=== PATIENT | female | born 1975 | race Caucasian/White ===

== ENCOUNTER 2021-04-01 20:45 | Inpatient (IN) | payer OTHER, SELFPAY ==
[2021-03-25 13:02] VITALS: BMI 58.3
--- NOTE | 2021-03-25 13:19 | PC.NURSE ---
Report to the Outpatient Waiting Room, entrance under the green pavilion located off [facility], at time _1000 on date __04/01/2021 . OR Time: _1200 . - You and your visitor will be asked a series of questions to screen for COVID 19 for your protection. NO VISITORS IN SURGERY AREA AT THIS TIME. - A mask is required within the hospital. - Only one visitor is allowed at this time. Patient visitors will be guided where to wait when not with patient. ONE VISITOR W/MASK ALLOWED POST OP [facility]. Preoperative COVID Testing Requirements: NO TESTING NEEDED-EMAIL COPY OF COVID POSITIVE RESULT FROM 12/2020 AND PROOF OF BOOSTER No COVID Test needed if: (proof is required; if not received patient will have Rapid Test prior to entry) - Patient has received COVID Vaccine at least 14 days prior to procedure date or - Patient has positive COVID test result within last 90 days of surgery date. COVID Test needed if above criteria is not met If not COVID vaccinated a COVID test must be conducted within 72 hours of surgery and patient is asked to isolate self from time of testing until procedure. You will go to the [facility] for your COVID testing. The [facility] site is located at the corner of [address] [facility]. You will only be called if COVID results are positive and your surgeon may reschedule your elective surgery date. Patients may have clear liquids (water, carbonated beverages, clear teas, apple juice) until 3 hours prior to surgery with a maximum of 20 ounces. - No food from midnight until time of surgery - Infants may have breast milk until 4 hours before surgery, infant formula 6 hours prior to surgery. - Children will be allowed to drink immediately following surgery. If applicable, please bring a bottle or sippy cup to assist with drinking. Juice, water, soda, and popsicles are readily available. For infants on formula, please bring formula the day of surgery. Pacifiers are allowed. Take the following medications with a SIP of water the morning of surgery: _LEXAPRO Medications to discontinue per physician _VITAMINS/SUPPLEMENTS 3 DAYS PRIOR Date to take last dose___3 DAYS PRIOR Please no make-up, nail yakut, hairspray, perfume, deodorant, or body powder the day of surgery. No jewelry (including any body piercings) or valuables the day of surgery, leave them at home. Please take a shower or bath the night before, or the morning of, surgery with an antibacterial soap. Wear comfortable, loose fitting clothing. Children are encouraged to wear pajamas. - Jewelry must be removed prior to entering the operating room. Rings and piercings that are not removed may be cut off. - The hospital will not accept responsibility for valuables. - Please leave all valuables, including medications, at home the day of surgery. If you are going home after surgery, a licensed commercial front load driver must drive you home. - NO public transportation without another adult. - We recommend that an adult stay with you for 24 hours following discharge. - We also recommend that you do not drive, make important decision, drink alcoholic beverages, or take any drugs that were not prescribed by your health care provider for at least 24 hours after your discharge time. For Pediatric surgeries, we recommend two adults accompany the child home (only one inside the building at this time). Follow any additional instructions given to you from your surgeon. Telephone instructions given to __PATIENT and asked if any additional questions and then verbalized understanding. Patient advised to call surgeon office or pre surgery nurse liaison [phone] if any additional questions.
[2021-04-01] VITALS (12 sets, daily range): BP systolic 80–148; BP diastolic 44–98; PULSE 87–127; RESP 16–29; TEMP 35.8–37.3; O2SAT 94–100
--- NOTE | ~2021-04-01 | XR_ITS ---
EXAMINATION: XR shoulder RT 1V DATE: 04/02/2021 00:32 INDICATION: Right shoulder pain and numbness. TECHNIQUE: A single view of right shoulder was obtained. COMPARISON: None. FINDINGS: Bone alignment is normal. No fracture. Glenohumeral joint is normal. There is mild acromioc lavicular joint osteoarthritis. IMPRESSION: 1. Mild acromioclavicular joint osteoarthritis. Reviewed, dictated and finalized at location A. ROL ROOM AGENT
--- NOTE | ~2021-04-01 | CT_ITS ---
EXAMINATION: CTA chest PE protocol DATE: 04/02/2021 18:42 INDICATION: Shortness of breath TECHNIQUE: Computed tomography angiography (CTA) of the chest was performed with 100 mL Omnipaque-350 intravenous contrast timed to evaluate the pulmonary arteries. Coronal maximum intensity projection 3D-reconstructions were created by the technologist. Automated exposure control and iterative reconst ruction technique were employed. Exam dose: 1002.56 mGy-cm total exam DLP. COMPARISON: None. FINDINGS: There is diagnostic contrast enhancement of the pulmonary arteries. No pulmonary embolism i s evident. No thoracic aortic aneurysm or dissection. Cardiomegaly. No pericardial or pleural effusion. Scattered bilateral upper and lower lobe patchy infiltrate and/atelectasis is noted. Calcified granul garrison in the posterior left lung base, left lower lobe, consistent with old granulomatous disease. Elevated right diaphragm. Diffuse hepatic steatosis. Normal morphology of the adrenal glands. No suspicious osteolytic or osteoblastic lesions. Degenerative changes of the cervical and thoracic s pine. IMPRESSION: No evidence of pulmonary embolism Patchy bilateral pulmonary infiltrates and/atelectasis, including both upper and lower lobes Cardiomegaly Reviewed, dictated and finalized at Location A. Reviewed, dictated and finalized at location A. CULTURAL EXTENSION AGENT IMPRESSION: No evidence of pulmonary embolism Patchy bilateral pulmonary infiltrates and/atelectasis, including both upper an d lower lobes Cardiomegaly
--- NOTE | ~2021-04-01 | US_ITS ---
EXAMINATION: US renal BI DATE: 04/03/2021 10:08 INDICATION: Abnormal kidney function tests. Elevated creatinine. TECHNIQUE: Multiple ultrasound grayscale images of the kidneys were obtained. COMPARISON: Chest CT 04/02/2021 FINDINGS: The right kidney measures 10.9 x 4.0 x 5.1 cm. The left kidney measures 11.9 x 5.6 x 5.0 cm. The kidn eys demonstrate normal parenchymal echogenicity. There is no hydronephrosis. The bladder is obscured by bandages. There is diffuse hepatic steatosis. IMPRESSION: 1. Normal kidneys. No hydronephrosis. 2. Diffuse hepatic steatosis. Reviewed, dictated and finalized at location A. NCED NURSING PROFESSOR
--- NOTE | ~2021-04-01 | XR_ITS ---
XR abdomen/kub 1V DATE: 04/01/2021 20:30 INDICATION: Instrument count TECHNIQUE: 3 AP supine portable views COMPARISON: None FINDINGS: No radiopaque foreign body or instrument is identified in the [id number]. Reviewed, dictated and finalized at Location A. Reviewed, dictated and finalized at location A. ITE MAN
--- NOTE | ~2021-04-01 | US_ITS ---
EXAMINATION: US venous doppler [facility] DATE: 04/03/2021 10:08 INDICATION: Upper limb swelling. TECHNIQUE: Grayscale ultrasound images without and with compression and Doppler ultrasound images of the bilateral upper extremity veins were obtained. COMPARISON: None. FINDINGS: The visualized portions of the right internal jugular vein, subclavian vein, axillary vein, brachial veins, basilic vein, cephalic vein, radial vein, and ulnar vein are patent. The visualized portions of the left internal jugular vein, subclavian vein, axillary vein, brachial v eins, basilic vein, cephalic vein, radial vein, and ulnar vein are patent. IMPRESSION: 1. No deep venous thrombosis. Reviewed, dictated and finalized at location A. ER ATTENDANT
--- NOTE | ~2021-04-01 | XR_ITS ---
XR chest 1V 04/03/2021 10:02 Indication: Shortness of breath Procedure: AP view of the chest Comparison: CT dated 04/02/2021 Findings: There are bilateral mixed linear and airspace infiltrates of the mid and lower lungs. Shall ow inspiration. No pleural effusion. Borderline heart size. No significant pleural effusion or pneumo thorax. Impression: 1: Bilateral infiltrates of the mid and lower lungs which may represent pneumonia and/or atelectasis. Reviewed, dictated and finalized at location B. ENGER SOLICITOR Impression: 1: Bilateral infiltrates of the mid and lower lungs which may represent pneumon ia and/or atelectasis.
--- NOTE | ~2021-04-01 | XR_ITS ---
EXAMINATION: XR shoulder LT 1V DATE: 04/02/2021 00:32 INDICATION: Left shoulder pain and numbness. TECHNIQUE: A single view of left shoulder was obtained. COMPARISON: None. FINDINGS: There is internal rotation of the humerus. No fracture. Glenohumeral joint is not well prof iled. There is mild acromioclavicular joint osteoarthritis. IMPRESSION: 1. Mild acromioclavicular joint osteoarthritis. Reviewed, dictated and finalized at location A. RNED GOODS RECEIVING CLERK
[2021-04-01] MEDS: ACETAMINOPHEN 500 MG TABLET 1000 MG PO (10:26)
[2021-04-01] MEDS: LACTATED RINGERS 1,000 ML 30 ML IV CONT ×2 (10:59→20:30)
[2021-04-01] MEDS: KETOROLAC 15 MG/ML VIAL (*BKC) IV PUSH (11:00)
--- NOTE | 2021-04-01 11:41 | P.PNAN_ITS ---
Anes - Initial Pre Proc Eval Procedure: Operation Date: 04/01/21 12:00 Proposed Procedures p Laparoscopic Assisted Vaginal Hysterectomy with Bilateral Salpingectomy - Mirella Lester MD s Cystoscopy - Mirella Lester MD Date/Time: 04/01/21 11:41 Surgeon: Mirella Lester MD Pre Op Diagnosis: pelvic pain, dysmenorrhea Patient Data Age: 45 Gender: F Height: 1.63 m Weight: 163.4 kg Last Vital Signs Temp 36.3 C L 04/01/21 11:11 Pulse 87 04/01/21 11:11 Resp 16 04/01/21 11:11 BP 148/98 H 04/01/21 11:11 Pulse Ox 100 04/01/21 11:11 Allergies Allergy/AdvReac Type Severity Reaction Status Date / Time meperidine [From Demerol] AdvReac Mild NAUSEA/VOMI Verified 04/01/21 10:22 TING oxycodone [From Percocet] AdvReac Mild Itching Verified 04/01/21 10:22 Home Medications Medication Instructions Recorded Confirmed Type calcium carbonate [Caltrate 600] 600 mg PO DAILY 03/25/21 04/01/21 History escitalopram oxalate [Lexapro] 10 mg PO DAILY 03/25/21 04/01/21 History hydrochlorothiazide 25 mg PO DAILY 03/25/21 04/01/21 History omega-3 fatty acids-vitamin E 1 cap PO DAILY 03/25/21 04/01/21 History [Fish Oil] vitamin B complex 2 tablet PO DAILY 03/25/21 04/01/21 History Patient hx anesthesia problems: post op nausea/vomiting Family hx anesthesia problems: none Results Review: All pre-operative results and documents have been reviewed as part of the pre-operative evaluation. [facility] Past Medical History Medical History Hypertension Social History Social History Smoking status: Never smoker Second hand tobacco smoke exposure: Yes (Mom smokes around pt) Alcohol intake: current Drinks per week: 1 Alcohol use details: socially Substance use: never Living arrangements: with family Spiritual care concerns: No Anes - Eval Final PreProcedure Day of Procedure 04/01/21 11:41 Patient weight: super morbidly obese Heart: regular rate and rhythm Lungs: clear to auscultation Airway: Mallampati scale class II Neurological: alert and oriented Last oral intake: >/= 8 hours ASA classification: III Emergent: no Anesthetic plan: proceed Anesthesia type and monitoring: general ETT and standard monitoring Results Review: All pre-operative results and documents have been reviewed as part of the pre-operative evaluation. Informed Consent: The patient's anesthetic plan and its attendant risks and benefits were discussed with the patient/family/POA. Questions were solicited and answers provided to the satisfaction of the patient/family/POA.
--- NOTE | 2021-04-01 12:22 | WPDHPUPDATE1 ---
History and Physical Update Update Date/Time: 04/01/21 12:22 History and Physical has been reviewed, including an updated exam of the patient. There are NO changes in the patient's condition. Risks, benefits, and alternatives have been discussed and questions answered. Patient agrees to proceed with procedure.
--- NOTE | 2021-04-01 12:23 | PM.HPGS ---
History of Present Illness History of Present Illness Consent: Risks, benefits, and alternatives have been discussed and questions answered. Patient agrees to proceed with procedure. Chief complaint: pelvic pain, dysmenorrhea Narrative: Yang Barbosa is a 45 year old female s/p endometrial ablation for AUB. However, having singificant pelvic pain and periods are returining. Risk/benefits/alternatives discussed, plan is to move forward with NATE, alejandra with BS and cysto. Review of Systems Review of Systems: All systems reviewed & are unremarkable except as noted in HPI and below Constitutional: Constitutional: Reports no additional constitutional complaints Eyes: Eyes: Reports no additional eye complaints ENT: Reports system reviewed and no additional complaints, except as documented and Reports Normal hearing present Cardiovascular: Cardiovascular: Reports no additional cardiovascular complaints Respiratory: Respiratory: Reports no additional respiratory complaints Gastrointestinal: Gastrointestinal: Reports no additional gastrointestinal complaints Genitourinary: Genitourinary: Reports no additional female genitourinary complaints and Reports as per HPI Musculoskeletal: Musculoskeletal: Reports no additional musculoskeletal complaints Integumentary/Breasts: Skin/Breast: Reports system reviewed and no additional complaints, except as docu Neurologic: Reports system reviewed and no additional complaints, except as documented [facility] Past Medical History Medical History (Updated 04/01/21 @ 12:27 by Mirella Lester MD) Hypertension Post endometrial ablation syndrome Surgical History Surgical History (Updated 04/01/21 @ 12:25 by Mirella Lester MD) H/O umbilical hernia repair S/P endometrial ablation S/P trigger finger release Social History Social History Smoking status: Never smoker Second hand tobacco smoke exposure: Yes (Mom smokes around pt) Alcohol intake: current Drinks per week: 1 Alcohol use details: socially Substance use: never Living arrangements: with family Spiritual care concerns: No Meds Home Medications and Allergies Home Medications Medication Instructions Recorded Confirmed Type calcium carbonate [Caltrate 600] 600 mg PO DAILY 03/25/21 04/01/21 History escitalopram oxalate [Lexapro] 10 mg PO DAILY 03/25/21 04/01/21 History hydrochlorothiazide 25 mg PO DAILY 03/25/21 04/01/21 History omega-3 fatty acids-vitamin E 1 cap PO DAILY 03/25/21 04/01/21 History [Fish Oil] vitamin B complex 2 tablet PO DAILY 03/25/21 04/01/21 History Allergies Allergy/AdvReac Type Severity Reaction Status Date / Time meperidine [From Demerol] AdvReac Mild NAUSEA/VOMI Verified 04/01/21 10:22 TING oxycodone [From Percocet] AdvReac Mild Itching Verified 04/01/21 10:22 Vital Signs Vital Signs - 24 hr 04/01/21 11:11 Temperature 36.3 C L Pulse Rate 87 Respiratory Rate 16 Blood Pressure 148/98 H Pulse Oximetry 100 Exam Const: General: cooperative, healthy appearing and well developed HENMT: Head: normal to inspection and normocephalic Ears: hearing grossly normal bilaterally General nose exam: Normal external nose present Face and sinus: normal facial exam Mouth: Yes Normal oral and palatal mucosa present Eyes: General: appearance normal, both eyes and all related structures Neck: Neck: normal visual inspection and full ROM Chest: Chest palpation & inspection: normal inspection of the chest and normal palpation of entire chest wall Resp: Effort & Inspection: normal respiratory effort and able to speak in complete sentences GI: GI Palp: No abdominal tenderness, No Abdominal aortic bruit present, No Soft to palpation, No Firmness to palpation present (GI), No Tenderness to palpation present (GI), No Guarding due to palpation present (GI), No Rigid due to palpation, No No hepatosplen
[2021-04-01] MEDS: ceFAZolin 3 GM/D5W 100 ML 100 ML IVPB (12:33)
[2021-04-01] MEDS: BUPIVACAINE/EPINEPHRINE 0.25% 10 ML VIAL 9 ML INFILTRATE (13:09)
--- NOTE | 2021-04-01 14:47 | SUR.OPER ---
PATIENT MAINTAINS POSITIONING AND UNCHANGED
[2021-04-01] MEDS: ceFAZolin SODIUM 1 GM VIAL 3 GM IV PUSH (16:33)
--- NOTE | 2021-04-01 17:35 | SUR.OPER ---
Dr Fuentes notified for assistance as per Dr Lester [id number]
--- NOTE | 2021-04-01 17:44 | SUR.OPER ---
positioning checked and maintained
--- NOTE | 2021-04-01 17:48 | SUR.OPER ---
urine remains clear yellow in vieira tubing and bag.
--- NOTE | 2021-04-01 20:40 | SUR.OPER ---
EBL 2500
[2021-04-01] MEDS: hydrOXYzine HCl 50 MG/ML VIAL 25 MG IM (21:05)
[2021-04-01] MEDS: fentaNYL CITRATE INJ (*CRX) 100 MCG/2 ML VIAL 25 MCG IV PUSH ×4 (21:27→21:43)
--- NOTE | 2021-04-01 21:55 | W.PM.PROC2 ---
Procedure Note - Detailed Date of Procedure 04/01/21 Pre-op Diagnosis pelvic pain, dysmenorrhea Post-op Diagnosis other (Pelvic pain, Dysmenorrhea, acute blood loss) Procedure Performed Vaginal hysterectomy, Diagnostic laparoscopy with Exploratory laparotomy Surgeon Mirella Lester MD Agency Legal Counsel Aguilar Fuentes MD Anesthesia general Indications Has had an endometrial ablation. However, pain worsened after surgery and decided to move forward with hysterectomy. Findings Normal appearing uterus, ovaries and tubes, however, vaginal vault long and narrow and difficult to visualize the pedicles due to size of patient and since there was bleeding higher up, laparoscopy performed. However unable to reach deep pelvic vessel inferior to cuff with laparoscopic instruments. Attempted to reopen cuff to reach but still unalbe given depth of pelvis. Dr Fuentes called into the assist and he agreed was difficult to reach and we decided to open with Pfannenstiel to reach the deep pelvic area that was still oozing/bleeding. Suture, compression and Surgicel powder needed to obtain hemostasis Description of Procedure The patient was taken to the operating room where general anesthesia was found to be adequate. She was then prepared and draped in the dorsal lithomy position in [facility]. A vieira catheter was placed. A speculum was used to visualize the cervix and single toothed tenaculum placed on the anterior lip. A second tenaculum was placed on the posterior lip. 0.5% marcaine with epinephrine used to inject the cervical mucosa. Then Bovie used to create a circumferential incision at the level of the cervical vaginal junction. Metzembaum scissors used to dissect the bladder back anteriorly off the cervix and enter into the peritoneum. The peritoneum entry was stretched laterally. The bladder retractor placed through the incision. The uterus was elevated upwards and the posterior colpotomy incision made with scissors. The incision was also stretched laterally . The posterior retractor was just not long enough to placed within the incision so it kept slipping out. A suture was placed on the posterior cuff to tag it. The curved heany clamps were placed to get the uterosacral ligaments on the left first, and suture ligate with o-vicryl suture, then on the right in a similar fashion. THe 5mm ligasure was then used to cauterize down the cardinal ligaments with good hemostasis bilaterally. Once adequate mobility noted, the VPATH retractor was inserted in the usual fashion. It was placed within the posterior vault first, then the anterior incision. However, once attaching the gel port, pneumoperitoneum could not be maintained due to patients large status despite trendelenberg. Also visibility in the vagina was very difficult due to redundant vaginal tissue, so the VNOTEs procedure aborted and retractor removed. I then proceeded with the 5mm LIgasure though as we worked our way up the cervix, visiblity continued to be difficult. A third academic assistant was called in to help retract and I decided to stitch back the labia majora to help with visiblity. The ligasure was then used through the uteroovarian ligaments on the left first then right with good hemostasis, then through the broad ligament and over the round ligaments bilaterally, left then right. Then through over the cornua through the tubal tissue and amputated the uterus/cervix and pulled through the vaginal cuff. Once removed, there was noted to be bleeding on the posterior aspect of the cuff. So the cuff was oversewed with o-vicryl suture in a running fashion. Then a portion of the peritoneum was also oversewed. However there was noted to be bleeding from the center of the cuff higher up but visualization was very difficult given habitus despite extra retraction. So the cuff was then closed with figure of 8 sutures and I decided to look laparoscopic. So an infraumbilical incision was made with a scalpel after inje
--- NOTE | 2021-04-01 22:06 | PC.NURSE ---
Patient transferred to post room #281. Oriented to unit, room, information board, and call light in place. Pt is ax0 x4 and experiencing significant amount of pain. Patient verbalizes understanding.
[2021-04-01] MEDS: MORPHINE SULFATE PCA (*CRX) 30 MG/30 ML SYR IV CONT (22:25)
[2021-04-01] MEDS: MORPHINE SULFATE (*CRX) 4 MG/ML INJ 5 MG IV PUSH (22:30)
[2021-04-01 23:24] LABS: Hematocrit 35.3 % (37.0-47.0); Hemoglobin 11.5 g/dL (12.0-15.0); Mean Corpuscular HGB Conc 32.6 g/dl (32-36); Mean Corpuscular Hemoglobin 31.3 pg (26-34); Mean Corpuscular Volume 96.2 fl (80-100); Mean Platelet Volume 10.1 fl (7.4-10.4); Platelet Count Result 240 k/mm3 (150-375); Red Blood Count 3.67 M/mm3 (4.2-5.4); Red Cell Distribution Width 12.8 % (11.5-14.5); White Blood Count 30.1 K/mm3 (4.5-10.0)
[2021-04-01] MEDS: SODIUM CHLORIDE 0.9% IV 1,000 ML 175 ML IV CONT (23:40)
[2021-04-01] MEDS: SODIUM CHLORIDE 0.9% IV 500 ML IV CONT (23:40)
[2021-04-02] VITALS (16 sets, daily range): BP systolic 100–122; BP diastolic 60–88; PULSE 104–139; RESP 14–30; TEMP 36.1–36.9; O2SAT 77–98
--- NOTE | 2021-04-02 00:24 | PM.GYNPNOP ---
DESIGN CHECKER - A/P Assessment and plan (1) Shoulder pain, bilateral: Code(s): M25.511 - Pain in right shoulder; M25.512 - Pain in left shoulder Status: Acute Assessment and Plan: Discussed case with Dr Coelho the Hospitalist. With H/H stable, will start toradol to see if helps. continue Ice/heat. May consider steroid tomorrow if NSAIDs not helpful (2) Acute blood loss as cause of postoperative anemia: Code(s): D62 - Acute posthemorrhagic anemia Status: Acute Assessment and Plan: stable. H/H good. Continue to follow closely. Repeat in 5 hrs Postoperative Procedures: Procedures Operation Date: 04/01/21 12:00 Actual Procedure Side Surgeon p Vaginal Hysterectomy Diagnostic Laparoscopy,Exploratory Laparotomy Not Applicable Mirella Lester MD Time Spent With Patient Time: Total time spent is 60min and greater than 50% in coordination of care (as documented) at patient's floor/unit and/or counseling Time with patient: Greater than 35 minutes DESIGN CHECKER- PN:Subj Post-Op Subjective Date/time seen: 04/02/21 00:24 Alison is complaining of shoulder pain. Post operative H/H stable. The pain is shooting/throbbing pains and cause pins and needles in hands since surgery. She can move her fingers on both hands now, but could not do that immediately post op. Elevation of the arms helps. No pelvic pain. no abdominal pain. no n/v. no fever. has a history of right shoulder bursitis. But both shoulders are causing her a problem today. Exam Narrative: Laying supine with slight leftward tilt. I can elevate both arms which give her some pain initially, but then some relief once up and moving. She can move her fingers more easily with the elevated arms. Patient has DYNAMITE CARTRIDGE CRIMPER and is using the pain button when able. Shoulder XRAY appears normal bilaterally DESIGN CHECKER - PN: Obj Data Vital Signs Vital Signs: Vital Signs - 24 hr 04/01/21 11:11 04/01/21 20:30 04/01/21 20:45 Temperature 36.3 C L 37.3 C 37.3 C Pulse Rate 87 127 H 127 H Respiratory Rate 16 25 H 25 H Blood Pressure 148/98 H 81/57 L 81/57 L Pulse Oximetry 100 98 98 04/01/21 21:00 04/01/21 21:15 04/01/21 21:30 Temperature Pulse Rate 119 H 118 H 117 H Respiratory Rate 28 H 26 H 23 H Blood Pressure 85/54 L 92/55 L 93/56 L Pulse Oximetry 97 97 97 04/01/21 21:45 04/01/21 22:25 Temperature Pulse Rate 122 H Respiratory Rate 29 H 20 Blood Pressure 94/62 L Pulse Oximetry 96 Intake/Output Intake/Output: Intake & Output 03/30/21 03/31/21 04/01/21 04/02/21 23:59 23:59 23:59 23:59 Intake Total 5300 Output Total 230 Balance 5070 Meds/Results Medications: Active Medications Generic Name Dose Route Start Last Admin Trade Name Freq PRN Reason Stop Dose Admin Enoxaparin Sodium 40 mg 04/02/21 06:00 Enoxaparin 40 Mg/0.4 Ml Syringe SUB-Q Q24H [facility] Escitalopram Oxalate 10 mg 04/02/21 09:00 Escitalopram Oxalate 10 Mg Tablet PO DAILY [facility] Fentanyl Citrate 25 mcg 04/01/21 11:43 04/01/21 21:43 Fentanyl Citrate Inj (*Crx) 100 Mcg/2 Ml Vial IV PUSH 25 mcg Q2M PRN Administration Pain Gabapentin 300 mg 04/02/21 00:25 Gabapentin 300 Mg Capsule PO TID [facility] Hydrochlorothiazide 25 mg 04/02/21 09:00 Hydrochlorothiazide 25 Mg Tablet PO DAILY [facility] Hydroxyzine HCl 25 mg 04/01/21 20:45 04/01/21 21:05 Hydroxyzine Hcl 50 Mg/Ml Vial IM 25 mg ONCE PRN Administration Itching Hydroxyzine HCl 25 mg 04/01/21 21:04 Hydroxyzine Hcl 50 Mg/Ml Vial IM Q4H PRN Moderate Pain (4-6) Morphine Sulfate 30 mg in 30 mls @ 0 mls/hr 04/01/21 21:00 04/01/21 22:25 Morphine Sulfate Pallet Stone Positioner IV CONT 0.5 mg/hr .Q0M PRN 0.5 mls/hr DYNAMITE CARTRIDGE CRIMPER Management Administration Protocol Per Protocol Sodium Chloride 500 mls @ 500 mls/hr 04/01/21 23:41 Normal Saline Iv IV CONT 04/02/21 00:40 .Q1H ONE Sodium Chloride 1,000 mls @ 175 mls/hr 04/02/21 00:10
[2021-04-02] MEDS: KETOROLAC 30 MG/ML VIAL (*BKC) (01:00)
[2021-04-02] MEDS: GABAPENTIN 300 MG CAPSULE PO ×3 (03:25→13:16)
[2021-04-02] MEDS: SODIUM CHLORIDE 0.9% IV 1,000 ML 175 ML IV CONT (05:04)
[2021-04-02 05:18] LABS: Basophils Percent Auto 0.1 % (0.2-1.2); Hematocrit 30.5 % (37.0-47.0); Hemoglobin 10.3 g/dL (12.0-15.0); Immature Granulocyte Absolute 0.24 K/mm3 (0.00-0.031); Immature Granulocyte Percent A 0.8 % (0-0.5); Lymphocytes Absolute Auto 2.15 K/mm3 (0.9-3.2); Lymphocytes Percent Auto 7.6 % (18.3-44.2); Mean Corpuscular HGB Conc 33.8 g/dl (32-36); Mean Corpuscular Volume 91.9 fl (80-100); Mean Platelet Volume 10.3 fl (7.4-10.4); Monocytes Absolute Auto 2.5 K/mm3 (0.1-0.6); Monocytes Percent Auto 8.7 % (2.6-8.5); Neutrophils Absolute Auto 23.5 K/mm3 (1.3-6.7); Neutrophils Percent Auto 82.8 % (45.5-73.1); Platelet Count Result 231 k/mm3 (150-375); Red Blood Count 3.32 M/mm3 (4.2-5.4); Red Cell Distribution Width 12.8 % (11.5-14.5); White Blood Count 28.4 K/mm3 (4.5-10.0)
[2021-04-02 05:27] LABS: Anion Gap 6 mmol/L (8-16); Blood Urea Nitrogen 23 mg/dL (7-17); Calcium 7.9 mg/dL (8.4-10.2); Carbon Dioxide 22 mmol/L (22-30); Chloride 104 mmol/L (98-107); Estimated CRCL calculation 76 ml/min; Estimated Glomerular Filt Rate 44; Glucose 154 mg/dL (65-110); Potassium 4.6 mmol/L (3.4-5.0); Sodium 132 mmol/L (137-145)
[2021-04-02] MEDS: ENOXAPARIN 40 MG/0.4 ML SYRINGE SUB-Q (05:32)
[2021-04-02] MEDS: MORPHINE SULFATE PCA (*CRX) 30 MG/30 ML SYR IV CONT (05:33)
--- NOTE | 2021-04-02 06:30 | PC.NURSE ---
04/01/21 at 2206-Pt arrived to 281 via bed from recovery with primary c/o pain 9:10- 10:10 to bilateral arms, shoulders, hands, and fingers. Pt describes the pain as a numb and tingling . Pt was unable to move fingers on her left hand initially and is able to do so by the end of this shift independently. Pt was also unable to lift bilateral arms off pillows that were placed under her arms upon admission to aide in comfort and reduction of swelling. By the end of this shift, pt's swelling appears to be improving and movement is improving also. Pt is now able to partially raise her right and left arms off the pillows to about a 45 degree angle. Right arm functioning better than left. Pt continues to c/o pain to bilateral shoulders as well stating she cannot move them off the bed also. PT states she has issues with her right shoulder and has had steroid injections in it, but the left side is bothering her more than her right. Pt states she can feel you touching her at all these areas. 04/01/21 at 2315-Dr. Lester was notified of pt's low bp, urine output, and inability to move bilateral arms, shoulders and hands. Updated on pt's status and concerns. 04/01/21 at 2335: Dr. Lester and nursing tunnel form placing supervisor, Alva Silva, at bedside to assess pt. Orders received for 500ml iv NS bolus x1, bilateral shoulder xrays and Dr. Lester consulted with Dr. William. Pt started on ivp toradol and gabapentin po after results of cbc obtained. Pt intermittently was able to rest with use of morphine APPLICATION PACKAGING CONSULTANT. This morning Dr. Lester again came to pt's bedside approx 0615 to reassess. Notified of marginal to low urine output that is dark tea colored (200ml in 5.5 hours). Orders received for ivp lasix x1, PT/OT eval, and decrease NS at kvo while morphine APPLICATION PACKAGING CONSULTANT infusion continues. Report given to LESLEY Glasgow to resume care.
[2021-04-02] MEDS: FUROSEMIDE INJ 40 MG/4 ML VIAL 20 MG IV PUSH (07:11)
[2021-04-02] MEDS: KETOROLAC 30 MG/ML VIAL (*BKC) IV PUSH ×2 (09:08→17:53)
[2021-04-02] MEDS: hydroCHLOROthiazide 25 MG TABLET PO (09:09)
[2021-04-02] MEDS: ESCITALOPRAM OXALATE 10 MG TABLET PO (09:10)
--- NOTE | 2021-04-02 09:40 | WPDANESPN ---
Anes - Prog Note Post-Op Date/Time: 04/02/21 09:40 Cardiovascular status: normal and other (patient complaining of left arm weakness will follow up) Respiratory status: normal Airway patency: baseline Mental status: baseline Post-Op hydration status: normal Vital Signs: Last Vital Signs Temp 36.7 C 04/02/21 07:50 Pulse 114 H 04/02/21 07:50 Resp 18 04/02/21 07:50 BP 114/62 04/02/21 07:50 Pulse Ox 94 04/02/21 07:50 Pain Score (VAS): 0 I/O: Intake & Output 04/01/21 04/02/21 04/02/21 23:59 07:59 15:59 Intake Total 5200 2170 Output Total 230 250 150 Balance 4970 1920 -150 Laboratory Tests 04/02/21 05:03 04/02/21 05:03 04/01/21 04/02/21 04/02/21 23:19 05:03 05:03 WBC 30.1 H 28.4 H RBC 3.67 L 3.32 L Hgb 11.5 L 10.3 L Hct 35.3 L 30.5 L MCV 96.2 91.9 MCH 31.3 31.0 MCHC 32.6 33.8 RDW 12.8 12.8 Plt Count 240 231 MPV 10.1 10.3 Immature Gran % (Auto) 0.8 H Neut % (Auto) 82.8 H Lymph % (Auto) 7.6 L [place] % (Auto) 8.7 H Eos % (Auto) 0.0 Baso % (Auto) 0.1 L Lymph # (Auto) 2.15 [place] # (Auto) 2.5 H Eos # (Auto) 0.0 Baso # (Auto) 0.0 Abs Immat Gran (auto) 0.24 H Absolute Neuts (auto) 23.5 H Absolute Nucleated RBC 0.0 Nucleated RBC % 0.0 Sodium 132 L Potassium 4.6 Chloride 104 Carbon Dioxide 22 Anion Gap 6 L BUN 23 H Creatinine 1.30 H Estim Creat Clear Calc 76 Estimated GFR 44 L Glucose 154 H Calcium 7.9 L Post-procedural complaints: none Patient Feedback: Patient satisfied with anesthetic care.
[2021-04-02] MEDS: ONDANSETRON INJ 4 MG/2 ML VIAL IV PUSH (11:29)
--- NOTE | 2021-04-02 15:01 | PC.NURSE ---
1453 Called PT to see if they received the order and if so when will they be coming to see pt? They determined that the pt should be seen by OT and they will not be in till tomorrow 04/03 in the AM.
[2021-04-02] MEDS: NALOXONE HCL 0.4 MG/ML VIAL (17:17)
--- NOTE | 2021-04-02 18:10 | PM.GYNPNOP ---
PULP GRINDER - A/P Postoperative Procedures: Procedures Operation Date: 04/01/21 12:00 Actual Procedure Side Surgeon p Vaginal Hysterectomy Diagnostic Laparoscopy,Exploratory Laparotomy Not Applicable Mirella Lester MD Time Spent With Patient Time: Total time spent is greater than 50% in coordination of care (as documented) at patient's floor/unit and/or counseling patient: Explained to her and her spouse the issues going on. Ordered spiral CT to rule out PE given prolonged immobility. Instructed RN to keep SCDs on if unable to get up and move around today. Was able to sit up earlier when nauseated and vomited, does not complain of pain in her abdomen. I believe she may need evaluated for sleep apnea. May need third dose of narcan. Labs pending from most recent draw. Fluids were restricted today to KVO for nutrition assistant only. However output did improve earlier today with low dose of lasix. Will get IM input as far as how to best manage the low sodium and low volume status based on the most recent labs once returned. May need to change toradol if Creatinine has worsened though it is doing well to improve shoulder mobility and pain control. DC optical engineering manager at this time. Time with patient: Greater than 35 minutes PULP GRINDER- PN:Subj Post-Op Subjective Date/time seen: 04/02/21 18:10 Called by RN concerning change in patients status. She reports that she was difficult to arouse from sleep and she would open her eyes but wasnt fully waking up. Her O2 sat was down in 70s and her pulse was elevated. She had concerns about needing to call a rapid response. I gave instruction to give NARCAN and stop nutrition assistant and that I would be there in 20 min, but to have the IM hospitalist evaluatae her in the mean time. She gave her NARCAN and repeated it 2 min later and the hospitalist was then phoned. She recieved orders for some labs and blood cultures. The patient had waken up and was able to conversate with the RN at that point so no rapid response was called. When I arrived, she was drawing the blood for the labs and the patient was awake, but still drowsy and nodding off to sleep. Easily arousable with minor stimulation and able to converse. She has no abdominal pain. She reports her shoulder pain is still a 6/10. Denies chest pain. says she generally does sleep heavily and will sometimes carry on conversation in her sleep and not know she did so. Her oxygen currently is maintained 94-98% with 4L o2. Exam Narrative: Smiles when aroused, but nods off to sleep if left alone Const: General: cooperative Orientation/consciousness: oriented to person, oriented to place and oriented to time Chest: Chest palpation & inspection: normal inspection of the chest and normal palpation of entire chest wall Resp: Effort & Inspection: able to speak in complete sentences, uses accessory muscles and symmetric chest movement Auscultation: clear to auscultation bilaterally, no crackles, no rales, no rhonchi and no wheezes Cardio: Rate: tachycardic Rhythm: regular rhythm Heart sounds: S1 normal heart sound present, S2 normal heart sound present and no murmurs GI: Inspection: normal to inspection, non-distended and incision (c/d/i) GI Palp: No abdominal tenderness Urinary Catheter: Urinary Catheter: urine clear Skin: General skin exam: normal color (but clammy feeling) Extrem: Other: all extremeties edematous, non pitting. Able to move arms up on her own however, not all the way up, but not wincing as much as yesterday. Able to move fingers and grasp, which was restricted yesterday evening with slight improvement this morning. PULP GRINDER - PN: Obj Data Vital Signs Vital Signs: Vital Signs - 24 hr 04/01/21 20:30 04/01/21 20:45 04/01/21 21:00 Temperature 37.3 C 37.3 C Pulse Rate 127 H 127 H 119 H Respiratory Rate 25 H 25 H 28 H Blood Pressure 81/57 L 81/57 L 85/54 L Pulse Oximetry 98 98 97 04/01/21 21:15 04/01/21 21:30 04/01/21 21:45 Temperature Pulse Rate 118 H 117 H 122 H Resp
--- NOTE | 2021-04-02 19:16 | ECG_ITS ---
Measurements Intervals [place] Rate: 115 P: 48 [place]: 145 QRS: 53 QRSD: 102 T: 28 QT: 308 QTc: 426 Interpretive Statements SINUS TACHYCARDIA DELAYED PRECORDIAL R/S TRANSITION MINIMAL Q WAVES- INFERIOR LEADS NONSPECIFIC T-WAVE ABNORMALITY- INFERIOR LEADS BASELINE ARTIFACT- I, II, III, AVR ABNORMAL ECG Electronically Signed On 04-02-2021 20:44:50 ARCADE GAME TECHNICIAN by Alex Keith D.O.
[2021-04-02 19:48] LABS: Basophils Absolute Auto 0.1 K/mm3 (0.0-0.1); Basophils Percent Auto 0.2 % (0.2-1.2); Hematocrit 27.1 % (37.0-47.0); Hemoglobin 8.7 g/dL (12.0-15.0); Immature Granulocyte Absolute 0.32 K/mm3 (0.00-0.031); Immature Granulocyte Percent A 1.1 % (0-0.5); Lymphocytes Absolute Auto 2.54 K/mm3 (0.9-3.2); Lymphocytes Percent Auto 8.5 % (18.3-44.2); Mean Corpuscular HGB Conc 32.1 g/dl (32-36); Mean Corpuscular Volume 96.4 fl (80-100); Mean Platelet Volume 10.1 fl (7.4-10.4); Monocytes Percent Auto 9.9 % (2.6-8.5); Neutrophils Absolute Auto 24.1 K/mm3 (1.3-6.7); Neutrophils Percent Auto 80.3 % (45.5-73.1); Platelet Count Result 210 k/mm3 (150-375); Red Blood Count 2.81 M/mm3 (4.2-5.4); Red Cell Distribution Width 12.8 % (11.5-14.5)
[2021-04-02 20:52] LABS: Alanine Aminotransferase 233 U/L (4-35); Albumin Level 3.2 g/dL (3.5-5.1); Alkaline Phosphatase 41 U/L (38-126); Anion Gap 6 mmol/L (8-16); Bilirubin,Total 0.3 mg/dL (0.2-1.3); Blood Urea Nitrogen 35 mg/dL (7-17); Calcium 7.4 mg/dL (8.4-10.2); Carbon Dioxide 22 mmol/L (22-30); Chloride 102 mmol/L (98-107); Estimated CRCL calculation 46 ml/min; Estimated Glomerular Filt Rate 24; Glucose 142 mg/dL (65-110); Potassium 5.6 mmol/L (3.4-5.0); Sodium 130 mmol/L (137-145)
[2021-04-02 21:10] LABS: Aspartate Amino Transferase 795 U/L (14-36)
--- NOTE | 2021-04-02 21:38 | PC.NURSE ---
[address] Lester per phone to report change in pt condition. @ 1655 Pt sleeping and could not arouse, HR 122, BP 122/67, PO2 77, Resp 20, applied 10 L O2 per Nonrebreather mask and stopped Morphine VIDEO CAMERA OPERATOR @ 1700 PO2 95. Urine output 45cc. Give Narcan, Stat H&H and Call Hospitalist to come evaluate pt. She stated she will be here in 20 minutes. 1711 Called Hospitalist and left a VM. 1712 Called Receiving And Processing Supervisor and stated that the Hospitalist did not answer. Receiving And Processing Supervisor gave this ext. to call [phone] and stated if you do not get ahold of them call me back. Called that number and did not get an answer. 1714 called HS back and got no answer. 1718 Gave .25 ml Narcan, no response, 1720 Gave .25 ml Narcan Pt woke up. She was responsive when questions ask of her. soon after this Dr. Lester here.
--- NOTE | 2021-04-02 21:39 | PC.NURSE ---
1453 Called PT to see when they are coming to evaluate pt? They Decided that OT needed to come see pt. OT will not be here until tomorrow 04/03/2021 in the AM. Please change the order to OT.
--- NOTE | 2021-04-02 21:40 | PC.NURSE ---
1815 Pt transported per bed to CT Scan. 1835 Returned to room 281 per bed.
--- NOTE | 2021-04-02 22:30 | PM.IMCN ---
Assessment and Plan Assessment and plan (1) Acute renal failure: Code(s): N17.9 - Acute kidney failure, unspecified Status: Acute (2) Transaminitis: Code(s): R74.01 - Elevation of levels of liver transaminase levels Status: Acute (3) Postoperative hypotension: Code(s): I95.81 - Postprocedural hypotension Status: Acute (4) Morphine overdose: Code(s): T40.2X1A - Poisoning by other opioids, accidental (unintentional), initial encounter Status: Acute (5) Acute blood loss anemia: Code(s): D62 - Acute posthemorrhagic anemia Status: Acute (6) Tachycardia: Code(s): R00.0 - Tachycardia, unspecified Status: Acute (7) Respiratory failure with hypoxia: Code(s): J96.91 - Respiratory failure, unspecified with hypoxia Status: Acute (8) Pneumonia: Code(s): J18.9 - Pneumonia, unspecified organism Status: Acute Additional Plan This is 45-year-old female status post hysterectomy for pelvic pain complicated postoperatively with hypotension, renal failure and hypoxia # acute renal failure with decreased urine output. 24 hour urine low. Will continue IV fluid. Taylor catheter in place. Likely due to postoperative blood loss and hypotension renal will be consulted mildly hyperkalemic will give a dose of Kayexalate. Recheck and monitor she. CK level is ordered which is pending at this time. # postoperative hypotension improved with IV hydration she received 6 L of fluids during the surgery. She had 2500 cc of blood loss during the surgery. She has postoperative anemia which # postoperative acute blood loss hemoglobin down to 8.7 with mild tachycardia and borderline blood pressure will transfuse 1 unit of PRBC and continue to monitor her H&H. Lovenox will be on hold for the morning if H&H improves adequately will resume DVT prophylaxis dose # bilateral upper extremity pain and edema due to prolonged surgery will rule out DVT will get ultrasound venous duplex elevate the arm as already ordered. This could be from her prolonged surgery and neurological compromise however noted to be improving since the surgery. # hypoxic respiratory failure noted this evening likely due to morphine overdose she was on LOTUS NOTES DEVELOPER which has been stopped. CT is negative for PE but does have bilateral infiltrates could relate to pneumonia with her leukocytosis of 30,000 will start her on empiric antibiotics with vancomycin cefepime # elevated liver enzymes likely due to shock liver avoid any hepatotoxic agents. Recheck and monitor. # DVT prophylaxis Lovenox will lower the dose to 30 mg due to renal function however will hold until we ensure no further blood loss # history of hypertension # hyponatremia worsened since surgery this could be related to hypovolemia versus SIADH post surgery. Normal saline at 100 cc an hour. Continue to monitor sodium level # hyper kalemia will give a dose of Kayexalate today and recheck in the morning # code status full code Thank you for the consultation. Discussed with matrix supervisor/admitting service. HPI Data of Consult Consult date: 04/02/21 Requesting Physician: Mirella Lester MD Primary Care Provider: PHYSICIAN NOT ON STAFF Consult Narrative Narrative: Yang Barbosa is a 45 year old female who presented to the hospital for elective vaginal hysterectomy on 04/01/2021. This was being done for pelvic pain worsened post endometrial ablation. The attempted laparoscopic surgery needed to be opened up and was complicated with 2500 cc blood loss along with prolonged surgery for several hours. Postoperatively she had bilateral upper extremity pain and tingling numbness. She has been placed on a morphine LOTUS NOTES DEVELOPER postoperative. See had used quite a bit of morphine and was noted to be unresponsive in the evening for which Narcan x2 was given after which she started to wake up. She was noted to be hypoxic in 70s and was placed on non-rebreathe
[2021-04-02 22:35] LABS: Creatine Kinase > 16000 U/L (30-135)
[2021-04-02 23:54] LABS: Lactic Acid Reflex 1.1 mmol/L (0.7-2.1)
[2021-04-03] VITALS (10 sets, daily range): BP systolic 103–126; BP diastolic 59–73; PULSE 102–109; RESP 14–20; TEMP 36.4–37.7; O2SAT 96–100
[2021-04-03] MEDS: ACETAMINOPHEN 325 MG TABLET PO ×2 (00:18→07:59)
[2021-04-03] MEDS: SODIUM CHLORIDE 0.9% IV 250 ML 30 ML IV CONT (02:33)
[2021-04-03] MEDS: TUBING, BLOOD PLUM PUMP TUBING 1 EACH XX (02:33)
[2021-04-03] MEDS: MORPHINE SULFATE (*CRX) 2 MG/ML INJ IV PUSH (06:06)
[2021-04-03] MEDS: SODIUM CHLORIDE 0.9% IV 1,000 ML 100 ML IV CONT (06:34)
[2021-04-03] MEDS: LIDOCAINE 5% PATCH 1 PATCH TRANSDERM (08:02)
--- NOTE | 2021-04-03 09:32 | PM.IMPN ---
Progress Note: A&P Assessment and Plan (1) Acute renal failure: Code(s): N17.9 - Acute kidney failure, unspecified Status: Acute (2) Transaminitis: Code(s): R74.01 - Elevation of levels of liver transaminase levels Status: Acute (3) Postoperative hypotension: Code(s): I95.81 - Postprocedural hypotension Status: Acute (4) Morphine overdose: Code(s): T40.2X1A - Poisoning by other opioids, accidental (unintentional), initial encounter Status: Acute (5) Acute blood loss anemia: Code(s): D62 - Acute posthemorrhagic anemia Status: Acute (6) Tachycardia: Code(s): R00.0 - Tachycardia, unspecified Status: Acute (7) Respiratory failure with hypoxia: Code(s): J96.91 - Respiratory failure, unspecified with hypoxia Status: Acute (8) Pneumonia: Code(s): J18.9 - Pneumonia, unspecified organism Status: Acute Additional Plan This is 45-year-old female status post hysterectomy for pelvic pain complicated postoperatively with hypotension, renal failure and hypoxia # recovering acute nonoliguric renal failure patient experience brisk diuresis overnight. She made 2.3 L of urine overnight. Her creatinine is improving, down to 1.4. Continue gentle IV fluid. Taylor catheter in place. Likely prerenal versus ischemic ATN in the setting of postoperative blood loss and hypotension; renal was consulted; mildly hyperkalemic; this has resolved with a dose of Kayexalate. Recheck and monitor she. CK level remains elevated 16,000 # postoperative hypotension improved with IV hydration she received 6 L of fluids during the surgery. Currently blood pressure stable in the 102/60 1-120 6/68 range. She had 2500 cc of blood loss during the surgery. She has postoperative anemia . # postoperative acute blood loss hemoglobin down to 8.7 with mild tachycardia and borderline blood pressure will transfuse 1 unit of PRBC and continue to monitor her H&H. Lovenox will be on hold for the morning if H&H improves adequately will resume DVT prophylaxis dose # bilateral upper extremity pain and edema due to prolonged surgery will rule out DVT will get ultrasound venous duplex elevate the arm as already ordered. This could be from her prolonged surgery and neurological compromise however noted to be improving since the surgery. # hypoxic respiratory failure noted this evening likely due to morphine overdose she was on PICK UP which has been stopped. CT is negative for PE but does have bilateral infiltrates could relate to pneumonia with her leukocytosis of 30,000 will start her on empiric antibiotics with vancomycin cefepime # elevated liver enzymes likely due to shock liver avoid any hepatotoxic agents. Recheck and monitor. # DVT prophylaxis Lovenox will lower the dose to 30 mg due to renal function however will hold until we ensure no further blood loss # history of hypertension # hyponatremia worsened since surgery this could be related to hypovolemia versus SIADH post surgery. Normal saline at 100 cc an hour. Continue to monitor sodium level. Serum sodium plateau the from 130-129. # hyper kalemia, resolved. # code status full code Subjective Date/time seen: 04/03/21 09:32 Narrative: This is 45-year-old female status post hysterectomy for pelvic pain complicated postoperatively with hypotension, renal failure and hypoxia. S: Patient was seen and examined at the bedside. She is complaining of severe bilateral shoulder pain. Review of Systems Review of Systems: All systems reviewed & are unremarkable except as noted in HPI and below Constitutional: Constitutional: Reports fatigue and Reports weakness Neurologic: Reports weakness Endocrine: Endocrine: Reports fatigue Exam Narrative: GENERAL: The patient with morbid obesity, not in acute distress awake alert and oriented x3 HEENT: Nonicteric sclerae, PERRLA, EOMI. Oropharynx clear. Moist mucous membranes. Conjunctivae appear w
--- NOTE | 2021-04-03 09:44 | PM.GYNPNOP ---
PHLEBOTOMY SUPPORT TECH - A/P Postoperative Procedures: Procedures Operation Date: 04/01/21 12:00 Actual Procedure Side Surgeon p Vaginal Hysterectomy Diagnostic Laparoscopy,Exploratory Laparotomy Not Applicable Mirella Lester MD Postoperative day: 2 Postoperative status: anemia (From acute blood loss: H/H yesterday evening appeared to be more consistent with what was lost during surgery but given other issues with low urine output and hypotension, it was decided to give the 1 uPRBC yesterday evening in consultation with hospitalist. ) and other (SHoulder girdle pain: needs antiinflamatory restarted if low dose tylenol doesnt help. I added lidocaine patches topically this morning. OT to see today per PT) Postoperative plan: ambulate (Needs to be more ambulatory today. Risk for DVT is high given all risk factors. Lovenox held this morning due to renal status, however todays labs pending. Restart pending hospitalist recommendation. SCDs while in bed), advance diet (VOmited yesterday, but was also over sedated with morphine PRESCHOOL EDUCATION DIRECTOR. Likely a reaction to hypotension/hypoxia. ENcouraged to start with warm broth at minimum), voiding trials (may consider dc vieira which would improve ambulation status, however with urine out put tricky, will continue with it at least for the majority of today) and other (Dehydration causing ARF, hyponatremia, hyperkalemia make it difficult to manage. May need another unit of blood today unless labs trend back to normal. LFTs elevated as well. Will follow) Time Spent With Patient Time: Total time spent is greater than 50% in coordination of care (as documented) at patient's floor/unit and/or counseling patient: Time with patient: 25 - 35 minutes PHLEBOTOMY SUPPORT TECH- PN:Subj Post-Op Subjective Date/time seen: 04/03/21 0700 The patient is awake and alert and up to a chair this morning. She reports fear of eating due to vomiting yesterday 1 x. She is in pain as her toradol was discontinued due to ARF from hypovolemia. She does not complain of any pain from abdominal incision or pelvic region or vaginal bleeding. SHe is however, still having severe pain in shoulders from swelling/inflammation as she is still having some third spacing. However, the blood she was given does seem to have improved her urine output. Labs have not yet been drawn this morning. She is concerned with how long it will take to get her arms and shoulders back to normal. Review of Systems Constitutional: Constitutional: Denies body ache(s), Denies chills, Reports fatigue, Denies headache(s) and Reports poor appetite Eyes: Eyes: Reports no additional eye complaints ENT: Reports system reviewed and no additional complaints, except as documented Cardiovascular: Cardiovascular: Denies chest pain, Denies chest pain at rest, Denies syncope and Reports rapid heart rate Respiratory: Respiratory: Reports as per HPI Gastrointestinal: Gastrointestinal: Denies abdominal pain, Denies belching, Denies change in stool character and Denies diarrhea Genitourinary: Genitourinary: Reports no additional female genitourinary complaints Musculoskeletal: Musculoskeletal: Reports as per HPI Integumentary/Breasts: Skin/Breast: Reports system reviewed and no additional complaints, except as docu Neurologic: Reports Normal hearing present, Reports numbness, Reports tingling, Reports paresthesias and Reports weakness Comments: All in upper extremeties bilaterally. Has been thought to have carpel tunnel prior to surgery so added swelling is likely adding to her symptoms Exam Const: General: cooperative, alert, awake, Physically active and anxious Nutritional Appearance: obese Orientation/consciousness: oriented to person, oriented to place and oriented to time HENMT: Head: normal to inspection Ears: hearing grossly normal bilaterally General nose exam: Normal external nose present Other: mouth dry Chest: Chest palpation & inspection: normal inspection of the chest Resp: Effort & Ins
[2021-04-03] MEDS: LIDOCAINE 5% PATCH 2 PATCH TRANSDERM (10:28)
[2021-04-03] MEDS: ESCITALOPRAM OXALATE 10 MG TABLET PO (10:29)
[2021-04-03] MEDS: GABAPENTIN 300 MG CAPSULE PO ×3 (10:29→17:12)
[2021-04-03] MEDS: NALBUPHINE HCL INJ 10 MG/ML AMPUL IV PUSH (11:08)
[2021-04-03] MEDS: hydrOXYzine HCl 50 MG/ML VIAL 25 MG IM (11:09)
[2021-04-03] MEDS: SODIUM BICARBONATE 8.4% 75 MEQ in SODIUM CHLORIDE 0.45% 1,000 ML IV CONT (11:11)
[2021-04-03 11:17] LABS: Basophils Absolute Auto 0.1 K/mm3 (0.0-0.1); Basophils Percent Auto 0.3 % (0.2-1.2); Eosinophils Absolute Auto 0.1 K/mm3 (0-0.3); Eosinophils Percent Auto 0.3 % (0-4.4); Hematocrit 24.7 % (37.0-47.0); Hemoglobin 8.3 g/dL (12.0-15.0); Immature Granulocyte Absolute 0.21 K/mm3 (0.00-0.031); Lymphocytes Absolute Auto 1.96 K/mm3 (0.9-3.2); Lymphocytes Percent Auto 9.8 % (18.3-44.2); Mean Corpuscular HGB Conc 33.6 g/dl (32-36); Mean Corpuscular Hemoglobin 30.6 pg (26-34); Mean Corpuscular Volume 91.1 fl (80-100); Mean Platelet Volume 10.4 fl (7.4-10.4); Monocytes Absolute Auto 1.7 K/mm3 (0.1-0.6); Monocytes Percent Auto 8.3 % (2.6-8.5); Neutrophils Absolute Auto 16.1 K/mm3 (1.3-6.7); Neutrophils Percent Auto 80.3 % (45.5-73.1); Platelet Count Result 168 k/mm3 (150-375); Red Blood Count 2.71 M/mm3 (4.2-5.4); Red Cell Distribution Width 12.9 % (11.5-14.5); White Blood Count 20.1 K/mm3 (4.5-10.0)
[2021-04-03 12:04] LABS: Alanine Aminotransferase 220 U/L (4-35); Alkaline Phosphatase 58 U/L (38-126); Anion Gap 8 mmol/L (8-16); Bilirubin,Total 0.5 mg/dL (0.2-1.3); Blood Urea Nitrogen 30 mg/dL (7-17); Calcium 7.7 mg/dL (8.4-10.2); Carbon Dioxide 23 mmol/L (22-30); Chloride 98 mmol/L (98-107); Estimated CRCL calculation 71 ml/min; Estimated Glomerular Filt Rate 41; Glucose 127 mg/dL (65-110); Magnesium 2.1 mg/dL (1.6-2.3); Sodium 129 mmol/L (137-145)
[2021-04-03 12:55] LABS: Creatine Kinase > 16000 U/L (30-135)
--- NOTE | 2021-04-03 13:33 | PM.CNNEP ---
Assessment and Plan Assessment and plan (1) Acute renal failure: Code(s): N17.9 - Acute kidney failure, unspecified Status: Acute Assessment and Plan: suspect ATN that is multifactorial: hypotension contrast exposure (CTA of chest) anemia infection (pneumonia) rhabdomyolysis (CPK > 16,000) agree with IVF hydration will add bicarb given elevated CPK renal ultrasound noted urine electrolytes c/w prerenal azotemia urine eosinophils negative creatinine has come down follow repeat labs and UOP may need force diuresis depending on urine output Extensive discussion (> 20 minutes) with patient's at baseline regarding the above issues. Will continue to follow. History of Present Illness Reason for Consult Consult date: 04/03/21 Reason for consult: acute renal failure and Other (low urine output) Chief Complaint Chief complaint: pelvic pain, dysmenorrhea History of Present Illness Narrative: The patient is a 45-year-old female with a past medical history as outlined below who was admitted to the hospital status post elective vaginal hysterectomy on 04/01/2021. The procedure itself is being done for pelvic pain that seemed to clinically worsen status post endometrial ablation. The attempted laparoscopic procedure needed to be qd needed to be converted to an open procedure and was further complicated by 2500 cc blood loss along with prolonged surgery that lasted several more hours than expected. Postoperatively, she had bilateral upper extremity pain in in association with tingle is/numbing and had a quite a bit more pain than expected since in need to be converted to an open procedure. There was concern that she had been using her pain pump a little bit too much as there was appeared where she was unresponsive that required the use of Narcan prior to her waking up. Further complications included hypoxia requiring supplemental oxygen, hypotension in association with a decrease in urine output, acute kidney injury/acute renal failure as well. More concerning is the fact that her H&H has dropped as well and she has required packed red blood cell transfusions but to keep this stable. Renal consultation was requested due to her acute kidney injury/acute renal failure in association with decreased urine output. By report and review of her records, it would seem that her kidney function was normal prior to these events that have occurred postoperatively. She appears to making a little bit more urine currently and her kidney function does seem to be somewhat better by repeat labs done today. Currently, the patient still appears to be in some mild distress but doing somewhat better in the last 24 hours. Review of Systems Review of Systems: As per HPI. [facility] Past Medical History Medical History (Updated 04/02/21 @ 22:38 by Luis Mckenna MD) Hypertension Post endometrial ablation syndrome Surgical History Surgical History (Updated 04/01/21 @ 12:25 by Mirella Lester MD) H/O umbilical hernia repair S/P endometrial ablation S/P trigger finger release Social History Social History Smoking status: Never smoker Second hand tobacco smoke exposure: Yes (Mom smokes around pt) Alcohol intake: current Drinks per week: 1 Alcohol use details: socially Substance use: never Spiritual care concerns: No Meds Home Medications and Allergies Home Medications Medication Instructions Recorded Confirmed Type calcium carbonate 600 mg PO DAILY 03/25/21 04/01/21 History hydrochlorothiazide 25 mg PO DAILY 03/25/21 04/01/21 History omega-3 fatty acids-vitamin E 1 cap PO DAILY 03/25/21 04/01/21 History vitamin B complex 2 tablet PO DAILY 03/25/21 04/01/21 History Allergies Allergy/AdvReac Type Severity Reaction Status Date / Time meperidine [From Demerol] AdvReac Mild NAUSEA/VOMI Verified 04/01/21 1
[2021-04-03] MEDS: HYDROcodone/acetaminophen (*CRX) 5-325 MG TABLET 1 TAB PO ×2 (14:01→17:13)
[2021-04-03 14:47] LABS: Creatinine Urine 36.5 mg/dL
[2021-04-03 14:49] LABS: Sodium Urine Random 15 meq/L
[2021-04-03 16:47] LABS: EDCOVIDSCREEN Negative (Negative)
--- NOTE | 2021-04-03 17:06 | PC.NURSE ---
0900 to US per W/C. 1008 Returned from US per W/C to room 281.
--- NOTE | 2021-04-03 19:54 | PC.NURSE ---
[address] Ty here to evaluate pt.
--- NOTE | 2021-04-03 19:55 | PC.NURSE ---
2420 Dr. Ty informed per phone that this pt is going to be transferred to [facility] per her request. Dr. Ty stated to cancel all orders lab orders that have not been drawn.
[2021-04-03 20:11] LABS: Eosinophil Urine None Seen % (None Seen)
--- NOTE | 2021-04-03 20:24 | PC.NURSE ---
0815 OT here to evaluate pt.
--- NOTE | 2021-04-03 20:44 | PC.NURSE ---
2005 [facility] transport team here to transfer pt to [facility] in [place], report given pt. information packet sent with them.. 2020 pt left per stretcher.
--- NOTE | 2021-04-03 20:54 | PC.NURSE ---
0715 Called Laboratory to come and draw pts labs due to being a hard stick. Lab stated they will be here soon. 0730 Loretta Mccollum RN offered to try and draw pts lab. she tried with out success. 0900 [employer] Floor [employer] Azucena called to state this pt will be transferred to 2 Medical today after the Hospitalist comes to evaluate her. 1141 Fax [facility] to [address] [place] [address] to start to give report. 1210 inform pt and her spouse that she will be transferred to 2 medical floor. Pt ask if her can go with her? This RN stated she will need to find out the answer and get back with them. 1234 Spoke to Azucena to see if visitors are allowed on [address] [place] [address]? She stated no visitors due to Covid visitor policy. Inform pt of this. She refuses to be transferred. She states she will leave. 1316 informed Azucena of this she states she will need to speak with Laura Director of OB. 1340 Dr. Lester Calls and she is informed of the previous info. 1431 Pt and both stated she wants to be transferred to another Hospital. 1435 HS Azucena called and there was no answer, spoke with oil paint shader she stated we will need a doctors order. 1448 Spoke with Leyla in Care Coordination she stated that the pt will need to call her insurance to see if the hospital they chose is in their network and most likely the Ambulance would not be covered. 1455 Informed pt and her of the previous info. They stated they would like to go to [facility] in [place]. [address] Lester to inform her of the Hospital choice, she stated she has already been in contact with this hospital and they are getting a bed assignment and she will speak with the Hospitalist at [facility] to make sure they can accept her on their medical floor where her can be with her and she will be on Telemetry. 1515 Pt informed this RN that [facility] is in her network and that they will personally pay for the Ambulance. 1620 Dr. Lester called this RN to inform that this pt can be transferred to [facility]. The process of transferring pt was put into motion. See other note for times of transfer.
[2021-04-03 23:32] LABS: Aspartate Amino Transferase 883 U/L (14-36)
[2021-04-06 11:31] LABS: Myoglobin, Urine 1390 mcg/L (<28)
[2021-04-07 13:28] LABS: Chloride Rand Ur 26 mmol/L (32-290); Chloride/Creatinine Rand Ur 124 (38-318); Creatinine Random Urine 21 mg/dL (20-275)
--- NOTE | 2021-04-23 13:13 | PM.TDS ---
Transfer Discharge Sum: Prov Provider Date of admission: 04/01/21 20:45 Primary care physician: PHYSICIAN NOT ON STAFF Admitting clinician: Mirella Lester MD Consults: 04/02/21 22:06 Consult to Physician Routine Comment: Consulting Provider: Lanette Carreon rn call center/ group to consult: nephrology Reason for consultation: acute renal failure Has provider been notified: Yes 04/03/21 Consult to Physician Routine Comment: Consulting Provider: Luis Mckenna rn call center/ group to consult: Reason for consultation: Respiratory Has provider been notified: Yes DS: Admitting Diagnosis Discharge Date 04/03/21 Admitting Diagnosis Surgical complication - during vaginal hysterectomy with laparoscopy and exploratory laparotomy, acute interaoperative hemorrhage, open laparotomy procedure DS: Discharge Diagnosis Discharge Diagnosis (1) Pneumonia: Code(s): J18.9 - Pneumonia, unspecified organism Status: Acute (2) Respiratory failure with hypoxia: Code(s): J96.91 - Respiratory failure, unspecified with hypoxia Status: Acute (3) Tachycardia: Code(s): R00.0 - Tachycardia, unspecified Status: Acute (4) Acute blood loss anemia: Code(s): D62 - Acute posthemorrhagic anemia Status: Acute (5) Morphine overdose: Code(s): T40.2X1A - Poisoning by other opioids, accidental (unintentional), initial encounter Status: Acute (6) Postoperative hypotension: Code(s): I95.81 - Postprocedural hypotension Status: Acute (7) Transaminitis: Code(s): R74.01 - Elevation of levels of liver transaminase levels Status: Acute (8) Acute renal failure: Code(s): N17.9 - Acute kidney failure, unspecified Status: Acute (9) Acute blood loss as cause of postoperative anemia: Code(s): D62 - Acute posthemorrhagic anemia Status: Acute (10) Shoulder pain, bilateral: Code(s): M25.511 - Pain in right shoulder; M25.512 - Pain in left shoulder Status: Acute (11) Pelvic pain: Code(s): R10.2 - Pelvic and perineal pain Status: Acute Transfer Discharge Sum: Med Medications Active and Home Medications: Home Medications calcium carbonate 600 mg PO DAILY 03/25/21 [History Confirmed 04/01/21] hydrochlorothiazide 25 mg PO DAILY 03/25/21 [History Confirmed 04/01/21] omega-3 fatty acids-vitamin E 1 cap PO DAILY 03/25/21 [History Confirmed 04/01/21] vitamin B complex 2 tablet PO DAILY 03/25/21 [History Confirmed 04/01/21] Transfer Discharge Sum: Hosp Hospital Course Hospital course: Yang Barbosa is a 45 year old female was admitted after surgery with vaginal hysterectomy with diagnostic laparoscopy and exploratory laparotomy for intraoperative hemorrhage. It was discussed with anesthesia to hold on transfusion since starting hemoglobin was good, so IVF were given. Her electrolytes were off initially however so medicine consultation was done to assist with resolution/recovery . She did have also shoulder pain after surgery and difficulty moving her upper extremities. It was unclear if this was from swelling and position at first, but then CK suggested rhabdomyolysis and thus renal support was necessary with IVF hydration. On POD#1 her main pain was from her shoulders and pain from surgery was minimal. She was given a Morphine FORKLIFT MATERIAL HANDLER for pain control. However, the soup mixer lead to overdose of narcotics and hypoxia /respiratory failure requiring oxygen. A CT scan was ordered to rule ou Pulmonary embolus given her symptoms and risk factors, which was negative for PE, however her LFTs were found to be elevated at this point as well which may have exacerbated her overdose. With electrolyte imbalance persisting and now morphine overdose and renal failure from hypovolemia/dehydration, blood transfusion was ordered and given, but it was clear she needed a higher level of care/telemetry or ICU. Her pain was not w
== END 2021-04-03 20:00 | disposition short-term general hospital (02) | DRG 742 ==
LOC: ANHOB2 22:45
PROVIDERS: Internal Medicine; Internal Medicine Nephrology; Physician Assistant; Admitting Provider Obstetrics & Gynecology; Visit Provider Obstetrics & Gynecology
PROC: 0UT9FZZ Resection of Uterus, Via Natural or Artificial Opening With Percutaneous Endoscopic Assistance (ICD-10-PCS; principal; 2021-04-01 12:00)
DX: N94.6 Dysmenorrhea, unspecified (principal); J18.9 Pneumonia, unspecified organism; J96.01 Acute respiratory failure with hypoxia; K72.00 Acute and subacute hepatic failure without coma; D62 Acute posthemorrhagic anemia; N99.61 Intraoperative hemorrhage and hematoma of a genitourinary system organ or structure complicating a genitourinary system procedure; E87.1 Hypo-osmolality and hyponatremia; Z68.44 Body mass index [BMI] 60.0-69.9, adult; M62.82 Rhabdomyolysis; N99.0 Postprocedural (acute) (chronic) kidney failure; T40.2X1A Poisoning by other opioids, accidental (unintentional), initial encounter; R10.2 Pelvic and perineal pain; Z20.822 Contact with and (suspected) exposure to COVID-19; E86.0 Dehydration; R00.0 Tachycardia, unspecified; I95.81 Postprocedural hypotension; E87.5 Hyperkalemia; I10 Essential (primary) hypertension; E66.01 Morbid (severe) obesity due to excess calories; M25.512 Pain in left shoulder; M25.511 Pain in right shoulder; Z53.31 Laparoscopic surgical procedure converted to open procedure
CPT/HCPCS: 36415; 36430; 71045; 71275; 73020; 74018; 76775; 80048; 80053; 82436; 82550; 82570; 83605; 83735; 83874; 84300; 85025; 85027; 85999; 86850; 86900; 86901; 86920; 87040; 87426; 88307; 93005; 93970; 97110; 97166; A9270; C9803; J0330; J0690; J0692; J1100; J1650; J1885; J1940; J2250; J2270; J2300; J2310; J2405; J2704; J2710; J3010; J3370; J3410; J7030; J7040; J7050; J7120; P9016; Q9967